=== PATIENT | female | born 1990 | race Two or more races ===

== ENCOUNTER 2017-07-19 10:47 | Emergency (ER) | payer MEDICAID ==
[~2017-07-19] VITALS: Ht 154.9 cm; Wt 59.0 kg
[2017-07-19 11:45] LABS: MICROSCOPIC NOT IND
[2017-07-19] MEDS ORDERED: SODIUM CHLORIDE FLUSH 10ML SYR IVF ONE (12:00)
[2017-07-19 12:02] LABS: BASOPHILS # (AUTO) 0.05 x10^3/uL (0-0.1); BASOPHILS % (AUTO) 1 % (0-1); EOSINOPHILS # (AUTO) 0.12 x10^3/uL (0-0.4); EOSINOPHILS % (AUTO) 2 % (1-7); LYMPHOCYTES # (AUTO) 1.59 x10^3/uL (1-3.4); LYMPHOCYTES % (AUTO) 33 % (22-44); MD NO; MEAN CORPUSCULAR HEMOGLOBIN 29.2 pg (27.0-34.8); MEAN CORPUSCULAR HGB CONC 33.4 g/dL (32.4-35.8); MEAN CORPUSCULAR VOLUME 87.4 fL (80-100); MEAN PLATELET VOLUME 8.4 fL (7.4-10.4); MONOCYTES # (AUTO) 0.31 x10^3/uL (0.2-0.8); MONOCYTES % (AUTO) 6 % (2-9); NEUTROPHILS # (AUTO) 2.77 x10^3/uL (1.8-6.8); NEUTROPHILS % (AUTO) 57 % (42-75); PLATELET COUNT 283 x10^3/uL (130-400); RED BLOOD COUNT 4.97 x10^6/uL (3.82-5.3); RED CELL DISTRIBUTION WIDTH 13.5 % (9.6-15.2)
[2017-07-19 12:09] LABS: ALANINE AMINOTRANSFERASE 20 U/L (12-78); ALBUMIN 3.7 g/dL (3.4-5.0); ANION GAP 5 mmol/L (5-15); CALCIUM 8.6 mg/dL (8.5-10.1); CHLORIDE 107 mmol/L (98-107); CREATININE 0.78 mg/dL (0.55-1.02)
[2017-07-19 12:14] LABS: ALKALINE PHOSPHATASE 109 U/L (45-117); BILIRUBIN,TOTAL 0.3 mg/dL (0.2-1.0); TOTAL PROTEIN 7.9 g/dL (6.4-8.2)
[2017-07-19] MEDS ORDERED: OMNIPAQUE 350 MG/ML, 100ML BOTTLE ONE (12:45)
[2017-07-19 14:05] VITALS: BP 110/62
== END 2017-07-19 14:06 | disposition home or self-care (01) ==
LOC: ED 13:53
DX: N23 Unspecified renal colic (principal); N13.30 Unspecified hydronephrosis
CPT/HCPCS: 36415; 74177; 80053; 81003; 83690; 84703; 85025; 99285; Q9967

== ENCOUNTER 2018-09-12 18:12 | Emergency (ER) | payer MEDICAID ==
[~2018-09-12] VITALS: Ht 154.9 cm; Wt 61.9 kg
[2018-09-12] MEDS ORDERED: ONDANSETRON 2MG/ML, 2ML ONE (18:34)
--- NOTE | 2018-09-12 18:45 | NUR ---
pt is 7 weeks . co of nause and vomiting. medicated per md orders. pt resting comfortable. no other complaints
[2018-09-12] MEDS ORDERED: D5%-0.9% NACL 1,000 ML IV SCH (19:00)
[2018-09-12] MEDS ORDERED: ONDANSETRON 2MG/ML, 2ML IVPush ONE (19:00)
--- NOTE | 2018-09-12 19:01 | NUR ---
BEDSIDE REPORT RECIEVED FROM PERRY WHYTE
[2018-09-12 20:17] VITALS: BP 95/57
--- NOTE | 2018-09-12 20:18 | NUR ---
pt repots she has no nausea and no vomitting and feels much better since she came in. pt provided po fluids for po challenge.
--- NOTE | 2018-09-12 20:33 | NUR ---
PT PASS PO CHALLENGE
== END 2018-09-12 20:35 | disposition home or self-care (01) ==
LOC: ED 20:25
DX: O21.0 Mild hyperemesis gravidarum (principal); Z3A.01 Less than 8 weeks gestation of pregnancy
CPT/HCPCS: 96374; 96375; 99283; J2405; J7042

== ENCOUNTER 2019-01-07 19:29 | Emergency (ER) | payer MEDICAID ==
[~2019-01-07] VITALS: Ht 157.5 cm; Wt 64.2 kg
[2019-01-07] MEDS ORDERED: SODIUM CHLORIDE FLUSH 10ML SYR IVF ONE (20:30)
[2019-01-07] MEDS ORDERED: SODIUM CHLORIDE 0.9% 1,000ML IVBOLUS ONE (20:30)
[2019-01-07] MEDS ORDERED: ACETAMINOPHEN 500 MG TABLET PO ONE (20:30)
[2019-01-07] MEDS ORDERED: ACETAMINOPHEN 500 MG TABLET ONE (20:30)
--- NOTE | 2019-01-07 20:43 | NUR ---
PT HAS CO COUGH AND CHEST PAIN ON THURSDAY. WENT TO URGENT CARE, SYMPTOMS HAVE NOT RESOLVED AND CAME TO ED TODAY. PT STILL HAS COUGH W CHEST PAIN AND SORE THROAT. 24 WEEKS . PT IS TACHY 118. BP 101/62. IV ESTABLISHED, LABS AND BLOOD CX DRAWN. FLUIDS INFUSING. NO NEEDS AT THIS TIME
[2019-01-07 20:45] LABS: RAPID INFLUENZA A Negative (Negative); RAPID INFLUENZA B Negative (Negative)
--- NOTE | 2019-01-07 20:50 | NUR ---
L&D NOTIFIED PT IN ROOM THAT IS 24 WEEKS .
[2019-01-07 20:54] LABS: BASOPHILS # (AUTO) 0.02 x10^3/uL (0-0.1); BASOPHILS % (AUTO) 0 % (0-1); EOSINOPHILS # (AUTO) 0.09 x10^3/uL (0-0.4); EOSINOPHILS % (AUTO) 1 % (1-7); LYMPHOCYTES # (AUTO) 1.12 x10^3/uL (1-3.4); LYMPHOCYTES % (AUTO) 14 % (22-44); MD NO; MEAN CORPUSCULAR HEMOGLOBIN 30.6 pg (27.0-34.8); MEAN CORPUSCULAR HGB CONC 33.4 g/dL (32.4-35.8); MEAN CORPUSCULAR VOLUME 91.6 fL (80-100); MEAN PLATELET VOLUME 7.4 fL (7.4-10.4); MONOCYTES # (AUTO) 0.65 x10^3/uL (0.2-0.8); MONOCYTES % (AUTO) 8 % (2-9); NEUTROPHILS # (AUTO) 6.02 x10^3/uL (1.8-6.8); NEUTROPHILS % (AUTO) 76 % (42-75); PLATELET COUNT 241 x10^3/uL (130-400); RED BLOOD COUNT 3.98 x10^6/uL (3.82-5.3); RED CELL DISTRIBUTION WIDTH 14.1 % (9.6-15.2)
[2019-01-07 21:05] LABS: ALANINE AMINOTRANSFERASE 34 U/L (12-78); ALBUMIN 2.5 g/dL (3.4-5.0); ANION GAP 6 mmol/L (5-15); CALCIUM 8.6 mg/dL (8.5-10.1); CHLORIDE 108 mmol/L (98-107); CREATININE 0.57 mg/dL (0.55-1.02)
[2019-01-07 21:07] LABS: ALKALINE PHOSPHATASE 116 U/L (45-117); BILIRUBIN,TOTAL 0.4 mg/dL (0.2-1.0)
[2019-01-07] MEDS ORDERED: CEFTRIAXONE PMX 1GM/50ML 50 ML ONE (21:13)
[2019-01-07] MEDS ORDERED: AZITHROMYCIN 250 MG TABLET ONE (21:14)
--- NOTE | 2019-01-07 21:22 | NUR ---
MEDS ADMIN PER APR. PT RESTING COMFORTABLY ON GURNEY. SPOUSE AT BEDSIDE.
[2019-01-07] MEDS ORDERED: AZITHROMYCIN 500 MG TABLET PO ONE (21:30)
[2019-01-07] MEDS ORDERED: CEFTRIAXONE PMX 1GM/50ML 50 ML IV ONE (21:30)
[2019-01-07 22:20] VITALS: BP 101/57
== END 2019-01-07 22:42 | disposition home or self-care (01) ==
LOC: ED 21:02
DX: O99.512 Diseases of the respiratory system complicating pregnancy, second trimester (principal); J15.9 Unspecified bacterial pneumonia; Z3A.24 24 weeks gestation of pregnancy
CPT/HCPCS: 36415; 71045; 80053; 83605; 84145; 85025; 87040; 87400; 93005; 96365; 99284; J0696; J7030